=== PATIENT | male | born 1945 | race Caucasian/White ===

== ENCOUNTER 2018-12-19 20:53 | Inpatient (IN) | payer MEDICARE, OTHER ==
[~2018-12-19] VITALS: Ht 188 cm; Wt 135.0 kg
--- NOTE | 2018-12-19 21:00 | NUR ---
Note undone in EDM - 12/19/18 at 2211 by ANN MARIE PT BIB [facility] WITH SOB AND ABD DISTENTION. PT REPORTS INCREASING SOB FOR PAST 2 DAYS AND ABD PAINFUL AND TIGHT. PT WITH VSS AND RESP RATE AT 36. Addendum: 12/19/18 at 2210 by ANN MARIE Amendment undone in EDM - 12/19/18 at 2211 by ANN MARIE NOTE AT 1954
[2018-12-19 21:25] LABS: MEAN CORPUSCULAR HEMOGLOBIN 29.6 pg (27.5-34.5); MEAN CORPUSCULAR HGB CONC 32.2 g/dL (33.2-36.2); MEAN PLATELET VOLUME 8.1 fL (7.4-10.4); PLATELET COUNT 313 x10^3/uL (130-400); RED BLOOD COUNT 5.17 x10^6/uL (4.38-5.82); RED CELL DISTRIBUTION WIDTH 15.1 % (9.4-14.8)
[2018-12-19] MEDS ORDERED: AZITHROMYCIN 500 MG in SODIUM CHLORIDE 0.9% 250 ML IV ONE (21:30)
[2018-12-19] MEDS ORDERED: FILTER 0.22 MICRON IV PRN (21:30)
[2018-12-19] MEDS ORDERED: AMIODARONE IN D5W 200 ML IV PRN (21:30)
[2018-12-19] MEDS ORDERED: CEFTRIAXONE PMX 1GM/50ML 50 ML IV ONE (21:30)
[2018-12-19 21:37] LABS: ALANINE AMINOTRANSFERASE 25 U/L (12-78); ALBUMIN 3.2 g/dL (3.4-5.0); ANION GAP 8 mmol/L (5-15); CALCIUM 8.6 mg/dL (8.5-10.1); CHLORIDE 98 mmol/L (98-107); CREATININE 1.05 mg/dL (0.7-1.3)
[2018-12-19 21:39] LABS: BASOPHILS # (AUTO) 0.07 x10^3/uL (0-0.1); BASOPHILS % (AUTO) 0 % (0-1); EOSINOPHILS # (AUTO) 0.14 x10^3/uL (0-0.4); EOSINOPHILS % (AUTO) 1 % (1-7); LYMPHOCYTES # (AUTO) 0.66 x10^3/uL (1-3.4); LYMPHOCYTES % (AUTO) 3 % (22-44); MD SCAN; MONOCYTES # (AUTO) 2.23 x10^3/uL (0.2-0.8); MONOCYTES % (AUTO) 9 % (2-9); NEUTROPHILS # (AUTO) 20.78 x10^3/uL (1.8-6.8); NEUTROPHILS % (AUTO) 87 % (42-75)
[2018-12-19 21:41] LABS: ALKALINE PHOSPHATASE 137 U/L (45-117); BILIRUBIN,TOTAL 0.4 mg/dL (0.2-1.0); TOTAL PROTEIN 7.4 g/dL (6.4-8.2); TROPONIN I 0.017 ng/mL (0.000-0.045)
--- NOTE | 2018-12-19 22:10 | NUR ---
Francis ruffin in EDM - 12/19/18 at 2213 by ANN MARIE BC X 2 TO LAB AND PT REPORTING SOB AND ABD PAIN REMAINS.
--- NOTE | 2018-12-19 22:13 | NUR ---
PT BIB [facility] WITH SOB AND HI HR AT 180-220. PT WITH 2 IV LINES STRATED AND PT WAS PREPED FOR RSI. PT INTUBATED WITH 8.0 ET TUBE. PT TOLERATED PROCEDURE WELL. PT WAS A VA DIVERT.
--- NOTE | 2018-12-19 22:26 | NUR ---
FAMILY AT BEDSIDE AND AWAITING CT SCAN AND CCU ADMIT.
[2018-12-19] MEDS ORDERED: CEFTRIAXONE PMX 1GM/50ML 50 ML ONE (22:32)
[2018-12-19] MEDS ORDERED: OMNIPAQUE 350 MG/ML, 100ML BOTTLE ONE (23:23)
--- NOTE | 2018-12-19 23:25 | NUR ---
PT BACK FROM CT SCAN AND VSS WITH FAMILY AT BEDSIDE.
[2018-12-19] MEDS ORDERED: PROPOFOL 100 ML IV ONE (23:51)
--- NOTE | 2018-12-20 00:38 | NUR ---
REPORT CALLED TO FLOOR PT READY TO GO.
[2018-12-20] MEDS ORDERED: SODIUM CHLORIDE 0.9% 1,000 ML IV SCH (01:00)
[2018-12-20] MEDS ORDERED: PHARMACY MAY ADJ FOR RENAL FX MC SCH (01:00)
[2018-12-20] MEDS ORDERED: CEFTRIAXONE PMX 1GM/50ML 50 ML IV SCH ×2 (01:00)
[2018-12-20] MEDS ORDERED: LIDOCAINE-MPF 1%, 2ML ENDO PRN (01:00)
[2018-12-20] MEDS ORDERED: ACETAMINOPHEN 650 MG/20.3 ML UDC NG PRN (01:00)
[2018-12-20] MEDS: PLEASE ENTER ALLERGIES MC SCH (01:47)
[2018-12-20 01:48] LABS: HEMOGLOBIN A1C 7.7 % (4.2-6.3)
[2018-12-20] MEDS: PROPOFOL 100 ML IV PRN ×6 (01:58→17:29)
[2018-12-20] MEDS ORDERED: SODIUM CHLORIDE 0.9% 1,000ML IVBOLUS ONE (02:00)
[2018-12-20] MEDS ORDERED: ALBUTEROL/IPRATROPIUM 2.5MG/0.5MG, 3 ML ONE (03:01)
[2018-12-20] MEDS: DOXYCYCLINE 100 MG in DEXTROSE 5% 250 ML IV SCH ×2 (03:14→14:19)
[2018-12-20] MEDS ORDERED: FILTER 0.22 MICRON IV PRN (03:30)
[2018-12-20] MEDS: FAMOTIDINE 20 MG/2 ML IV SCH ×2 (03:31→20:10)
[2018-12-20] MEDS: HEPARIN 5,000 UNITS/ML, 1ML SQ SCH ×3 (03:32→20:10)
[2018-12-20] MEDS: AMIODARONE 900 MG in DEXTROSE 5% 482 ML IV PRN (03:37)
[2018-12-20 03:41] VITALS: BP 104/64
[2018-12-20 05:31] LABS: MEAN CORPUSCULAR HEMOGLOBIN 29.9 pg (27.5-34.5); MEAN CORPUSCULAR HGB CONC 32.6 g/dL (33.2-36.2); MEAN CORPUSCULAR VOLUME 91.9 fL (81-97); PLATELET COUNT 260 x10^3/uL (130-400); RED BLOOD COUNT 4.53 x10^6/uL (4.38-5.82); RED CELL DISTRIBUTION WIDTH 15.2 % (9.4-14.8)
[2018-12-20 05:42] LABS: CHLORIDE 102 mmol/L (98-107)
[2018-12-20 05:43] LABS: ANION GAP 7 mmol/L (5-15); CALCIUM 7.7 mg/dL (8.5-10.1)
[2018-12-20 05:52] LABS: CREATININE 1.12 mg/dL (0.7-1.3); T4 (THYROXINE) 8.6 mcg/dL (4.5-12.1)
[2018-12-20 05:58] LABS: MD YES
[2018-12-20 06:05] LABS: LYMPH#(MANUAL) 1.06 x10^3/uL (1-3.4); LYMPHS% (MANUAL) 4 % (22-44); MONOS#(MANUAL) 2.13 x10^3/uL (0.3-2.7); MONOS% (MANUAL) 8 % (2-9); SEG#(MANUAL) 23.41 x10^3/uL (1.8-6.8); SEGS% (MANUAL) 88 % (42-75)
[2018-12-20 06:08] LABS: <PLATELET ESTIMATE> ADEQUATE; ANISOCYTOSIS 1+
[2018-12-20 06:12] LABS: LARGE PLATELETS 1+
[2018-12-20] MEDS: ALBUTEROL/IPRATROPIUM 2.5MG/0.5MG, 3 ML NPPB SCH ×4 (06:26→22:57)
[2018-12-20] MEDS: SODIUM CHLORIDE 0.9% 1,000 ML IV SCH ×2 (07:46→17:24)
[2018-12-20] MEDS: INSULIN LISPRO 100 UNITS/ML, PEN SQ-INSULIN SCH ×3 (07:51→17:21)
[2018-12-20] MEDS ORDERED: PROPOFOL 10 MG/ML, 100ML IV ONE (10:02)
[2018-12-20] MEDS ORDERED: MIDAZOLAM 1 MG/ML, 5ML ONE (10:02)
[2018-12-20] MEDS ORDERED: ROCURONIUM 10MG/ML,5ML ONE (10:02)
[2018-12-20] MEDS ORDERED: ETOMIDATE 20 MG/10 ML ONE (10:02)
[2018-12-20] MEDS ORDERED: SUCCINYLCHOLINE 20 MG/ML, 10ML ONE (10:02)
[2018-12-20] MEDS ORDERED: PROPOFOL 10 MG/ML, 20ML ONE (10:02)
--- NOTE | 2018-12-20 10:25 | NUR ---
TF GOAL: w/ propofol: VITAL HIGH PROTEIN @ 65ml/hr off propofol: 75ml/hr
[2018-12-20] MEDS: FENTANYL PF 100 MCG/2ML IVPush PRN (22:03)
[2018-12-21] MEDS: INSULIN LISPRO 100 UNITS/ML, PEN SQ-INSULIN SCH ×4 (00:12→15:37)
[2018-12-21] MEDS: CEFTRIAXONE PMX 2GM/50ML 50 ML IV SCH (00:12)
[2018-12-21] MEDS: PROPOFOL 100 ML IV PRN ×8 (00:22→23:50)
[2018-12-21] MEDS: FENTANYL PF 100 MCG/2ML IVPush PRN ×2 (00:34→20:08)
[2018-12-21] MEDS: DOXYCYCLINE 100 MG in DEXTROSE 5% 250 ML IV SCH (02:35)
[2018-12-21] MEDS: HEPARIN 5,000 UNITS/ML, 1ML SQ SCH ×3 (03:24→20:08)
[2018-12-21 04:53] LABS: BASOPHILS # (AUTO) 0.03 x10^3/uL (0-0.1); BASOPHILS % (AUTO) 0 % (0-1); EOSINOPHILS # (AUTO) 0.04 x10^3/uL (0-0.4); EOSINOPHILS % (AUTO) 0 % (1-7); LYMPHOCYTES # (AUTO) 1.06 x10^3/uL (1-3.4); LYMPHOCYTES % (AUTO) 7 % (22-44); MD NO; MEAN CORPUSCULAR HEMOGLOBIN 29.9 pg (27.5-34.5); MEAN CORPUSCULAR HGB CONC 32.4 g/dL (33.2-36.2); MEAN CORPUSCULAR VOLUME 92.3 fL (81-97); MEAN PLATELET VOLUME 8.3 fL (7.4-10.4); MONOCYTES # (AUTO) 1.35 x10^3/uL (0.2-0.8); MONOCYTES % (AUTO) 8 % (2-9); NEUTROPHILS # (AUTO) 13.78 x10^3/uL (1.8-6.8); NEUTROPHILS % (AUTO) 85 % (42-75); PLATELET COUNT 232 x10^3/uL (130-400); RED BLOOD COUNT 4.31 x10^6/uL (4.38-5.82)
[2018-12-21 04:54] LABS: ANION GAP 7 mmol/L (5-15); CALCIUM 7.7 mg/dL (8.5-10.1); CHLORIDE 102 mmol/L (98-107)
[2018-12-21] MEDS: ALBUTEROL/IPRATROPIUM 2.5MG/0.5MG, 3 ML NPPB SCH ×5 (07:00→22:01)
[2018-12-21] MEDS: AMIODARONE 900 MG in DEXTROSE 5% 482 ML IV PRN (08:18)
[2018-12-21] MEDS: FAMOTIDINE 20 MG/2 ML IV SCH ×2 (08:57→20:12)
[2018-12-21] MEDS: FUROSEMIDE 20 MG/2 ML IV SCH ×2 (11:53→17:30)
[2018-12-21] MEDS: POTASSIUM CHLORIDE 10% 20 MEQ/15 ML UDC PO SCH ×2 (11:54→20:12)
[2018-12-21] MEDS: AMIODARONE 200 MG TABLET PO SCH (20:12)
[2018-12-21] MEDS: DOXYCYCLINE 50 MG/5 ML ORAL SUSP PO SCH (20:13)
[2018-12-22] MEDS: INSULIN LISPRO 100 UNITS/ML, PEN SQ-INSULIN SCH ×5 (00:28→21:08)
[2018-12-22] MEDS: CEFTRIAXONE PMX 2GM/50ML 50 ML IV SCH (00:30)
[2018-12-22] MEDS: FENTANYL PF 100 MCG/2ML IVPush PRN (00:35)
[2018-12-22] MEDS: ALBUTEROL/IPRATROPIUM 2.5MG/0.5MG, 3 ML NPPB SCH ×6 (02:09→22:39)
[2018-12-22] MEDS: PROPOFOL 100 ML IV PRN ×4 (02:24→21:17)
[2018-12-22] MEDS: HEPARIN 5,000 UNITS/ML, 1ML SQ SCH ×3 (03:56→19:31)
[2018-12-22 04:40] LABS: BASOPHILS # (AUTO) 0.01 x10^3/uL (0-0.1); BASOPHILS % (AUTO) 0 % (0-1); EOSINOPHILS # (AUTO) 0.13 x10^3/uL (0-0.4); EOSINOPHILS % (AUTO) 1 % (1-7); LYMPHOCYTES % (AUTO) 5 % (22-44); MD NO; MEAN CORPUSCULAR HEMOGLOBIN 30.2 pg (27.5-34.5); MEAN CORPUSCULAR HGB CONC 32.9 g/dL (33.2-36.2); MEAN CORPUSCULAR VOLUME 91.9 fL (81-97); MEAN PLATELET VOLUME 8.1 fL (7.4-10.4); MONOCYTES # (AUTO) 1.26 x10^3/uL (0.2-0.8); MONOCYTES % (AUTO) 9 % (2-9); NEUTROPHILS # (AUTO) 11.56 x10^3/uL (1.8-6.8); NEUTROPHILS % (AUTO) 85 % (42-75); PLATELET COUNT 238 x10^3/uL (130-400); RED BLOOD COUNT 4.26 x10^6/uL (4.38-5.82); RED CELL DISTRIBUTION WIDTH 15.3 % (9.4-14.8)
[2018-12-22 04:51] LABS: ANION GAP 4 mmol/L (5-15); CALCIUM 8.3 mg/dL (8.5-10.1); CHLORIDE 103 mmol/L (98-107); CREATININE 0.85 mg/dL (0.7-1.3)
[2018-12-22] MEDS: FAMOTIDINE 20 MG/2 ML IV SCH ×2 (08:11→21:06)
[2018-12-22] MEDS: FUROSEMIDE 20 MG/2 ML IV SCH ×2 (08:11→17:11)
[2018-12-22] MEDS: DOXYCYCLINE 50 MG/5 ML ORAL SUSP PO SCH (08:11)
[2018-12-22] MEDS: POTASSIUM CHLORIDE 10% 20 MEQ/15 ML UDC PO SCH ×2 (08:11→21:06)
[2018-12-22] MEDS: AMIODARONE 200 MG TABLET PO SCH ×2 (08:13→21:07)
[2018-12-23] MEDS: CEFTRIAXONE PMX 2GM/50ML 50 ML IV SCH ×2 (00:44→23:33)
[2018-12-23] MEDS: PROPOFOL 100 ML IV PRN ×2 (01:42→04:39)
[2018-12-23] MEDS: ALBUTEROL/IPRATROPIUM 2.5MG/0.5MG, 3 ML NPPB SCH ×6 (03:00→22:38)
[2018-12-23] MEDS: HEPARIN 5,000 UNITS/ML, 1ML SQ SCH ×3 (04:11→19:56)
[2018-12-23 04:37] LABS: MEAN CORPUSCULAR HEMOGLOBIN 29.6 pg (27.5-34.5); MEAN CORPUSCULAR HGB CONC 32.5 g/dL (33.2-36.2); MEAN PLATELET VOLUME 8.1 fL (7.4-10.4); PLATELET COUNT 227 x10^3/uL (130-400); RED BLOOD COUNT 4.39 x10^6/uL (4.38-5.82); RED CELL DISTRIBUTION WIDTH 15.4 % (9.4-14.8)
[2018-12-23 04:47] LABS: ANION GAP 7 mmol/L (5-15); CALCIUM 8.4 mg/dL (8.5-10.1); CHLORIDE 103 mmol/L (98-107); CREATININE 0.81 mg/dL (0.7-1.3); TRIGLYCERIDES 169 mg/dL (50-200)
[2018-12-23 04:55] LABS: BASOPHILS # (AUTO) 0.06 x10^3/uL (0-0.1); BASOPHILS % (AUTO) 0 % (0-1); EOSINOPHILS # (AUTO) 0.04 x10^3/uL (0-0.4); EOSINOPHILS % (AUTO) 0 % (1-7); LYMPHOCYTES % (AUTO) 4 % (22-44); MD SCAN; MONOCYTES # (AUTO) 1.72 x10^3/uL (0.2-0.8); MONOCYTES % (AUTO) 11 % (2-9); NEUTROPHILS # (AUTO) 13.95 x10^3/uL (1.8-6.8); NEUTROPHILS % (AUTO) 85 % (42-75)
[2018-12-23] MEDS: INSULIN LISPRO 100 UNITS/ML, PEN SQ-INSULIN SCH ×5 (06:10→23:31)
[2018-12-23] MEDS: FUROSEMIDE 20 MG/2 ML IV SCH ×2 (07:37→17:00)
[2018-12-23] MEDS: POTASSIUM CHLORIDE 10% 20 MEQ/15 ML UDC PO SCH ×2 (09:23→20:36)
[2018-12-23] MEDS: metFORMIN 500 MG TABLET PO SCH ×2 (09:23→17:00)
[2018-12-23] MEDS: GABAPENTIN 400 MG CAPSULE PO SCH ×3 (09:23→20:36)
[2018-12-23] MEDS: FAMOTIDINE 20 MG/2 ML IV SCH ×2 (09:24→20:35)
[2018-12-23] MEDS: AMIODARONE 200 MG TABLET PO SCH ×2 (09:24→20:36)
[2018-12-23] MEDS: BRIMONIDINE TARTRATE OPHTH 0.15%, 5ML EACHEYE SCH ×2 (13:16→20:35)
[2018-12-23] MEDS: DORZOLAMIDE OPHTH 2%, 10ML EACHEYE SCH ×3 (13:17→20:35)
[2018-12-23] MEDS: DEXMEDETOMIDINE 1,000 MCG in SODIUM CHLORIDE 0.9% 240 ML IV PRN (14:58)
[2018-12-23] MEDS: FENTANYL PF 100 MCG/2ML IVPush PRN (19:46)
[2018-12-23] MEDS ORDERED: POLYETHYLENE GLYCOL 17 GM PACKET PO PRN (20:30)
[2018-12-23] MEDS ORDERED: BISACODYL 10 MG SUPP PR PRN (20:30)
[2018-12-23] MEDS ORDERED: MAGNESIUM CITRATE 300ML ORAL SOL PO PRN (20:30)
[2018-12-23] MEDS: RISPERIDONE 0.5 MG TABLET PO SCH (20:36)
[2018-12-23] MEDS: TERAZOSIN 2MG CAPSULE PO SCH (20:36)
[2018-12-23] MEDS: ATORVASTATIN 40 MG TABLET PO SCH (20:36)
[2018-12-24] MEDS: DEXMEDETOMIDINE 1,000 MCG in SODIUM CHLORIDE 0.9% 240 ML IV PRN ×2 (02:02→15:58)
[2018-12-24] MEDS: ALBUTEROL/IPRATROPIUM 2.5MG/0.5MG, 3 ML NPPB SCH ×6 (02:07→22:57)
[2018-12-24] MEDS: HEPARIN 5,000 UNITS/ML, 1ML SQ SCH ×3 (03:56→20:30)
[2018-12-24 04:25] LABS: MEAN CORPUSCULAR HEMOGLOBIN 29.8 pg (27.5-34.5); MEAN CORPUSCULAR HGB CONC 32.6 g/dL (33.2-36.2); MEAN CORPUSCULAR VOLUME 91.3 fL (81-97); MEAN PLATELET VOLUME 7.9 fL (7.4-10.4); PLATELET COUNT 255 x10^3/uL (130-400); RED BLOOD COUNT 4.25 x10^6/uL (4.38-5.82); RED CELL DISTRIBUTION WIDTH 15.7 % (9.4-14.8)
[2018-12-24 04:34] LABS: ANION GAP 5 mmol/L (5-15); CALCIUM 8.8 mg/dL (8.5-10.1); CHLORIDE 105 mmol/L (98-107); CREATININE 0.85 mg/dL (0.7-1.3)
[2018-12-24] MEDS: INSULIN LISPRO 100 UNITS/ML, PEN SQ-INSULIN SCH ×4 (04:38→20:36)
[2018-12-24 04:42] LABS: BASOPHILS % (AUTO) 0 % (0-1); EOSINOPHILS # (AUTO) 0.01 x10^3/uL (0-0.4); EOSINOPHILS % (AUTO) 0 % (1-7); LYMPHOCYTES # (AUTO) 0.43 x10^3/uL (1-3.4); LYMPHOCYTES % (AUTO) 3 % (22-44); MD SCAN; MONOCYTES # (AUTO) 1.23 x10^3/uL (0.2-0.8); MONOCYTES % (AUTO) 7 % (2-9); NEUTROPHILS # (AUTO) 15.29 x10^3/uL (1.8-6.8); NEUTROPHILS % (AUTO) 90 % (42-75)
[2018-12-24] MEDS: metFORMIN 500 MG TABLET PO SCH ×2 (08:36→15:51)
[2018-12-24] MEDS: BRIMONIDINE TARTRATE OPHTH 0.15%, 5ML EACHEYE SCH ×2 (08:36→20:37)
[2018-12-24] MEDS: POTASSIUM CHLORIDE 10% 20 MEQ/15 ML UDC PO SCH ×2 (08:36→20:29)
[2018-12-24] MEDS: AMIODARONE 200 MG TABLET PO SCH ×2 (08:36→20:29)
[2018-12-24] MEDS: FAMOTIDINE 20 MG/2 ML IV SCH ×2 (08:36→20:30)
[2018-12-24] MEDS: GABAPENTIN 400 MG CAPSULE PO SCH ×3 (08:36→20:29)
[2018-12-24] MEDS: FUROSEMIDE 20 MG/2 ML IV SCH ×2 (08:36→15:52)
[2018-12-24] MEDS: DORZOLAMIDE OPHTH 2%, 10ML EACHEYE SCH ×3 (08:57→20:37)
[2018-12-24] MEDS ORDERED: INSULIN GLARGINE 100 UNITS/ML, PEN SQ-INSULIN SCH (09:00)
[2018-12-24] MEDS: TERAZOSIN 2MG CAPSULE PO SCH (20:29)
[2018-12-24] MEDS: ATORVASTATIN 40 MG TABLET PO SCH (20:29)
[2018-12-24] MEDS: RISPERIDONE 0.5 MG TABLET PO SCH (20:30)
[2018-12-24] MEDS: INSULIN GLARGINE 100 UNITS/ML, PEN SQ-INSULIN SCH (20:37)
[2018-12-25] MEDS: CEFTRIAXONE PMX 2GM/50ML 50 ML IV SCH (00:05)
[2018-12-25] MEDS: FENTANYL PF 100 MCG/2ML IVPush PRN (01:54)
[2018-12-25] MEDS: ALBUTEROL/IPRATROPIUM 2.5MG/0.5MG, 3 ML NPPB SCH ×6 (03:00→22:35)
[2018-12-25] MEDS: DEXMEDETOMIDINE 1,000 MCG in SODIUM CHLORIDE 0.9% 240 ML IV PRN (03:09)
[2018-12-25 04:25] LABS: MEAN CORPUSCULAR HGB CONC 31.9 g/dL (33.2-36.2); MEAN CORPUSCULAR VOLUME 94.1 fL (81-97); MEAN PLATELET VOLUME 8.3 fL (7.4-10.4); PLATELET COUNT 248 x10^3/uL (130-400); RED BLOOD COUNT 4.32 x10^6/uL (4.38-5.82); RED CELL DISTRIBUTION WIDTH 15.7 % (9.4-14.8)
[2018-12-25 04:33] LABS: ANION GAP 5 mmol/L (5-15); CHLORIDE 106 mmol/L (98-107); CREATININE 0.87 mg/dL (0.7-1.3)
[2018-12-25] MEDS: INSULIN LISPRO 100 UNITS/ML, PEN SQ-INSULIN SCH ×4 (05:00→20:23)
[2018-12-25] MEDS: HEPARIN 5,000 UNITS/ML, 1ML SQ SCH ×3 (05:03→20:19)
[2018-12-25 05:24] LABS: BASOPHILS # (AUTO) 0.04 x10^3/uL (0-0.1); BASOPHILS % (AUTO) 0 % (0-1); EOSINOPHILS # (AUTO) 0.02 x10^3/uL (0-0.4); EOSINOPHILS % (AUTO) 0 % (1-7); LYMPHOCYTES # (AUTO) 0.58 x10^3/uL (1-3.4); LYMPHOCYTES % (AUTO) 4 % (22-44); MD SCAN; MONOCYTES # (AUTO) 1.39 x10^3/uL (0.2-0.8); MONOCYTES % (AUTO) 9 % (2-9); NEUTROPHILS # (AUTO) 13.96 x10^3/uL (1.8-6.8); NEUTROPHILS % (AUTO) 87 % (42-75)
[2018-12-25] MEDS: FUROSEMIDE 20 MG/2 ML IV SCH ×2 (06:36→15:38)
[2018-12-25] MEDS: GABAPENTIN 400 MG CAPSULE PO SCH ×3 (08:34→20:21)
[2018-12-25] MEDS: FAMOTIDINE 20 MG/2 ML IV SCH ×2 (08:34→20:20)
[2018-12-25] MEDS: POTASSIUM CHLORIDE 10% 20 MEQ/15 ML UDC PO SCH ×2 (08:34→20:20)
[2018-12-25] MEDS: DORZOLAMIDE OPHTH 2%, 10ML EACHEYE SCH ×3 (08:34→20:20)
[2018-12-25] MEDS: BRIMONIDINE TARTRATE OPHTH 0.15%, 5ML EACHEYE SCH ×2 (08:34→20:20)
[2018-12-25] MEDS: AMIODARONE 200 MG TABLET PO SCH ×2 (08:35→20:22)
[2018-12-25] MEDS: INSULIN GLARGINE 100 UNITS/ML, PEN SQ-INSULIN SCH ×2 (08:38→20:22)
--- NOTE | 2018-12-25 15:34 | NUR ---
PUREE/ NTL up for meals no straws Addendum: 12/25/18 at 1535 by USHA VILLATORO Amended: Links added.
[2018-12-25] MEDS: ATORVASTATIN 40 MG TABLET PO SCH (20:21)
[2018-12-25] MEDS: RISPERIDONE 0.5 MG TABLET PO SCH (20:21)
[2018-12-25] MEDS: TERAZOSIN 2MG CAPSULE PO SCH (20:21)
[2018-12-26] MEDS: CEFTRIAXONE PMX 2GM/50ML 50 ML IV SCH (01:42)
[2018-12-26] MEDS: ALBUTEROL/IPRATROPIUM 2.5MG/0.5MG, 3 ML NPPB SCH ×5 (03:00→19:59)
[2018-12-26] MEDS: INSULIN LISPRO 100 UNITS/ML, PEN SQ-INSULIN SCH ×4 (04:35→21:44)
[2018-12-26 04:36] LABS: BASOPHILS # (AUTO) 0.03 x10^3/uL (0-0.1); BASOPHILS % (AUTO) 0 % (0-1); EOSINOPHILS # (AUTO) 0.14 x10^3/uL (0-0.4); EOSINOPHILS % (AUTO) 1 % (1-7); LYMPHOCYTES # (AUTO) 0.69 x10^3/uL (1-3.4); LYMPHOCYTES % (AUTO) 6 % (22-44); MD NO; MEAN CORPUSCULAR HGB CONC 31.9 g/dL (33.2-36.2); MEAN CORPUSCULAR VOLUME 94.1 fL (81-97); MEAN PLATELET VOLUME 8.1 fL (7.4-10.4); MONOCYTES # (AUTO) 1.14 x10^3/uL (0.2-0.8); MONOCYTES % (AUTO) 9 % (2-9); NEUTROPHILS # (AUTO) 10.27 x10^3/uL (1.8-6.8); NEUTROPHILS % (AUTO) 84 % (42-75); PLATELET COUNT 255 x10^3/uL (130-400); RED BLOOD COUNT 4.28 x10^6/uL (4.38-5.82)
[2018-12-26] MEDS: HEPARIN 5,000 UNITS/ML, 1ML SQ SCH ×3 (04:36→20:11)
[2018-12-26 04:46] LABS: ANION GAP 6 mmol/L (5-15); CALCIUM 9.3 mg/dL (8.5-10.1); CHLORIDE 107 mmol/L (98-107); CREATININE 0.75 mg/dL (0.7-1.3); TRIGLYCERIDES 159 mg/dL (50-200)
[2018-12-26] MEDS: BRIMONIDINE TARTRATE OPHTH 0.15%, 5ML EACHEYE SCH ×2 (09:00→20:11)
[2018-12-26] MEDS: FUROSEMIDE 20 MG/2 ML IV SCH ×2 (09:28→19:30)
[2018-12-26] MEDS: FAMOTIDINE 20 MG/2 ML IV SCH (09:29)
[2018-12-26] MEDS: DORZOLAMIDE OPHTH 2%, 10ML EACHEYE SCH ×3 (09:29→20:11)
[2018-12-26] MEDS: AMIODARONE 200 MG TABLET PO SCH ×2 (09:30→20:12)
[2018-12-26] MEDS: GABAPENTIN 400 MG CAPSULE PO SCH ×3 (09:30→20:12)
[2018-12-26] MEDS: POTASSIUM CHLORIDE 10% 20 MEQ/15 ML UDC PO SCH ×2 (09:30→20:13)
[2018-12-26] MEDS: INSULIN GLARGINE 100 UNITS/ML, PEN SQ-INSULIN SCH ×2 (09:33→21:44)
[2018-12-26] MEDS ORDERED: POTASSIUM CHLORIDE 20 MEQ PACKET ONE (19:49)
[2018-12-26] MEDS ORDERED: FAMOTIDINE 20 MG TABLET ONE (19:57)
[2018-12-26] MEDS: BUDESONIDE 0.5 MG/2 ML INHA INH SCH (19:59)
[2018-12-26] MEDS: RISPERIDONE 0.5 MG TABLET PO SCH (20:12)
[2018-12-26] MEDS: FAMOTIDINE 20 MG TABLET PO SCH (20:12)
[2018-12-26] MEDS: ATORVASTATIN 40 MG TABLET PO SCH (20:12)
[2018-12-26] MEDS: TERAZOSIN 2MG CAPSULE PO SCH (20:12)
[2018-12-26 20:43] VITALS: BP 127/82
[2018-12-27] MEDS: CEFTRIAXONE PMX 2GM/50ML 50 ML IV SCH (00:22)
[2018-12-27 01:09] VITALS: BP 125/76
[2018-12-27] MEDS: INSULIN LISPRO 100 UNITS/ML, PEN SQ-INSULIN SCH ×4 (03:21→20:19)
[2018-12-27] MEDS: HEPARIN 5,000 UNITS/ML, 1ML SQ SCH ×3 (03:24→20:07)
[2018-12-27 05:20] LABS: BASOPHILS # (AUTO) 0.03 x10^3/uL (0-0.1); BASOPHILS % (AUTO) 0 % (0-1); EOSINOPHILS # (AUTO) 0.31 x10^3/uL (0-0.4); EOSINOPHILS % (AUTO) 3 % (1-7); LYMPHOCYTES # (AUTO) 0.73 x10^3/uL (1-3.4); LYMPHOCYTES % (AUTO) 6 % (22-44); MD NO; MEAN CORPUSCULAR HEMOGLOBIN 30.1 pg (27.5-34.5); MEAN CORPUSCULAR VOLUME 93.8 fL (81-97); MEAN PLATELET VOLUME 8.4 fL (7.4-10.4); MONOCYTES % (AUTO) 9 % (2-9); NEUTROPHILS # (AUTO) 9.65 x10^3/uL (1.8-6.8); NEUTROPHILS % (AUTO) 82 % (42-75); PLATELET COUNT 301 x10^3/uL (130-400); RED BLOOD COUNT 4.51 x10^6/uL (4.38-5.82); RED CELL DISTRIBUTION WIDTH 15.5 % (9.4-14.8)
[2018-12-27 05:24] LABS: ALANINE AMINOTRANSFERASE 80 U/L (12-78); ALBUMIN 2.6 g/dL (3.4-5.0); ANION GAP 6 mmol/L (5-15); CALCIUM 9.3 mg/dL (8.5-10.1); CHLORIDE 106 mmol/L (98-107); CREATININE 0.82 mg/dL (0.7-1.3)
[2018-12-27 05:27] LABS: ALKALINE PHOSPHATASE 108 U/L (45-117); BILIRUBIN,TOTAL 0.4 mg/dL (0.2-1.0); TOTAL PROTEIN 6.8 g/dL (6.4-8.2)
[2018-12-27] MEDS: ALBUTEROL/IPRATROPIUM 2.5MG/0.5MG, 3 ML NPPB SCH ×4 (07:40→20:45)
[2018-12-27] MEDS: BUDESONIDE 0.5 MG/2 ML INHA INH SCH ×2 (07:40→20:49)
[2018-12-27 07:41] VITALS: BP 125/77
[2018-12-27] MEDS ORDERED: POTASSIUM CHLORIDE 20 MEQ TAB.ER.PRT ONE (08:42)
[2018-12-27] MEDS: GABAPENTIN 400 MG CAPSULE PO SCH ×3 (08:49→20:06)
[2018-12-27] MEDS: AMIODARONE 200 MG TABLET PO SCH ×2 (08:49→20:06)
[2018-12-27] MEDS: DORZOLAMIDE OPHTH 2%, 10ML EACHEYE SCH ×3 (08:50→21:34)
[2018-12-27] MEDS: FUROSEMIDE 20 MG/2 ML IV SCH ×2 (08:50→17:38)
[2018-12-27] MEDS: FAMOTIDINE 20 MG TABLET PO SCH (08:50)
[2018-12-27] MEDS: POTASSIUM CHLORIDE 10% 20 MEQ/15 ML UDC PO SCH ×2 (08:50→20:19)
[2018-12-27] MEDS: BRIMONIDINE TARTRATE OPHTH 0.15%, 5ML EACHEYE SCH ×2 (08:51→21:34)
[2018-12-27] MEDS: INSULIN GLARGINE 100 UNITS/ML, PEN SQ-INSULIN SCH ×2 (08:57→21:35)
--- NOTE | 2018-12-27 09:54 | NUR ---
CONCRETE FORM SETTER REC: GROUND/ THINS * UPRIGHT AT 90 FOR ALL PO INTAKE * SMALL BITES/SINGLE SIPS * NO STRAWS * 1:1 ASSIST/SUPERVISION BY NURSING * MEDS WHOLE WITH LIQUID WASH Swallow sign posted in patient room. Addendum: 12/27/18 at 0955 by Kelli VILLATORO Amended: Links added.
[2018-12-27] MEDS: TERAZOSIN 2MG CAPSULE PO SCH (20:06)
[2018-12-27] MEDS: ATORVASTATIN 40 MG TABLET PO SCH (20:06)
[2018-12-27] MEDS: RISPERIDONE 0.5 MG TABLET PO SCH (20:07)
[2018-12-27] MEDS ORDERED: HALOPERIDOL 5 MG/ML IM ONE (20:30)
[2018-12-27 21:00] VITALS: BP 142/84
[2018-12-28] MEDS: CEFTRIAXONE PMX 2GM/50ML 50 ML IV SCH (00:39)
[2018-12-28 01:27] VITALS: BP 122/72
[2018-12-28] MEDS: INSULIN LISPRO 100 UNITS/ML, PEN SQ-INSULIN SCH ×4 (04:44→20:32)
[2018-12-28 04:55] LABS: BASOPHILS # (AUTO) 0.03 x10^3/uL (0-0.1); BASOPHILS % (AUTO) 0 % (0-1); EOSINOPHILS # (AUTO) 0.25 x10^3/uL (0-0.4); EOSINOPHILS % (AUTO) 2 % (1-7); LYMPHOCYTES # (AUTO) 0.74 x10^3/uL (1-3.4); LYMPHOCYTES % (AUTO) 7 % (22-44); MD NO; MEAN CORPUSCULAR HGB CONC 31.9 g/dL (33.2-36.2); MEAN PLATELET VOLUME 8.4 fL (7.4-10.4); MONOCYTES # (AUTO) 0.83 x10^3/uL (0.2-0.8); MONOCYTES % (AUTO) 8 % (2-9); NEUTROPHILS # (AUTO) 9.28 x10^3/uL (1.8-6.8); NEUTROPHILS % (AUTO) 83 % (42-75); PLATELET COUNT 308 x10^3/uL (130-400); RED BLOOD COUNT 4.58 x10^6/uL (4.38-5.82); RED CELL DISTRIBUTION WIDTH 15.6 % (9.4-14.8)
[2018-12-28 05:03] LABS: CHLORIDE 103 mmol/L (98-107)
[2018-12-28] MEDS: HEPARIN 5,000 UNITS/ML, 1ML SQ SCH ×3 (05:12→20:29)
[2018-12-28 05:13] LABS: ALANINE AMINOTRANSFERASE 68 U/L (12-78); ALBUMIN 2.7 g/dL (3.4-5.0); ALKALINE PHOSPHATASE 117 U/L (45-117); ANION GAP 6 mmol/L (5-15); BILIRUBIN,TOTAL 0.9 mg/dL (0.2-1.0); CALCIUM 9.1 mg/dL (8.5-10.1); CREATININE 0.82 mg/dL (0.7-1.3); TOTAL PROTEIN 6.9 g/dL (6.4-8.2)
[2018-12-28] MEDS: ALBUTEROL/IPRATROPIUM 2.5MG/0.5MG, 3 ML NPPB SCH ×4 (07:05→19:54)
[2018-12-28 08:05] VITALS: BP 102/60
[2018-12-28] MEDS: DORZOLAMIDE OPHTH 2%, 10ML EACHEYE SCH ×3 (08:15→20:30)
[2018-12-28] MEDS: BRIMONIDINE TARTRATE OPHTH 0.15%, 5ML EACHEYE SCH ×2 (08:15→20:31)
[2018-12-28] MEDS: FUROSEMIDE 20 MG/2 ML IV SCH ×2 (08:15→15:44)
[2018-12-28] MEDS: POTASSIUM CHLORIDE 10% 20 MEQ/15 ML UDC PO SCH ×2 (08:15→20:29)
[2018-12-28] MEDS: GABAPENTIN 400 MG CAPSULE PO SCH ×3 (08:16→20:30)
[2018-12-28] MEDS: AMIODARONE 200 MG TABLET PO SCH ×2 (08:16→20:29)
[2018-12-28] MEDS: INSULIN GLARGINE 100 UNITS/ML, PEN SQ-INSULIN SCH ×2 (08:16→20:32)
[2018-12-28] MEDS: BUDESONIDE 0.5 MG/2 ML INHA INH SCH ×2 (11:40→19:54)
[2018-12-28 13:50] VITALS: BP 117/72
[2018-12-28 19:04] VITALS: BP 100/63
[2018-12-28] MEDS: ATORVASTATIN 40 MG TABLET PO SCH (20:29)
[2018-12-28] MEDS: RISPERIDONE 0.5 MG TABLET PO SCH (20:29)
[2018-12-28] MEDS: TERAZOSIN 2MG CAPSULE PO SCH (20:30)
[2018-12-29] MEDS: CEFTRIAXONE PMX 2GM/50ML 50 ML IV SCH (00:19)
[2018-12-29 00:48] VITALS: BP 92/56
[2018-12-29] MEDS: HEPARIN 5,000 UNITS/ML, 1ML SQ SCH ×3 (04:48→20:45)
[2018-12-29 06:45] VITALS: BP 119/69
[2018-12-29] MEDS: ALBUTEROL/IPRATROPIUM 2.5MG/0.5MG, 3 ML NPPB SCH ×4 (07:40→19:23)
[2018-12-29] MEDS: BUDESONIDE 0.5 MG/2 ML INHA INH SCH ×2 (07:40→19:26)
[2018-12-29] MEDS: INSULIN LISPRO 100 UNITS/ML, PEN SQ-INSULIN SCH ×4 (08:20→20:46)
[2018-12-29] MEDS: INSULIN GLARGINE 100 UNITS/ML, PEN SQ-INSULIN SCH ×2 (08:21→20:46)
[2018-12-29] MEDS: BRIMONIDINE TARTRATE OPHTH 0.15%, 5ML EACHEYE SCH ×2 (08:23→20:47)
[2018-12-29] MEDS: GABAPENTIN 400 MG CAPSULE PO SCH ×3 (08:23→20:46)
[2018-12-29] MEDS: AMIODARONE 200 MG TABLET PO SCH ×2 (08:24→20:46)
[2018-12-29] MEDS: DORZOLAMIDE OPHTH 2%, 10ML EACHEYE SCH ×3 (08:26→20:47)
[2018-12-29] MEDS: POTASSIUM CHLORIDE 10% 20 MEQ/15 ML UDC PO SCH ×2 (08:26→20:49)
[2018-12-29] MEDS: FUROSEMIDE 20 MG/2 ML IV SCH ×2 (08:26→16:51)
[2018-12-29 13:28] VITALS: BP 152/76
[2018-12-29 19:16] VITALS: BP 107/52
[2018-12-29] MEDS: ATORVASTATIN 40 MG TABLET PO SCH (20:46)
[2018-12-29] MEDS: TERAZOSIN 2MG CAPSULE PO SCH (20:46)
[2018-12-29] MEDS: RISPERIDONE 0.5 MG TABLET PO SCH (20:46)
[2018-12-29] MEDS: LACTOBACILLUS CHEW TABLET PO SCH (20:49)
[2018-12-30 01:31] VITALS: BP 112/66
[2018-12-30] MEDS: HEPARIN 5,000 UNITS/ML, 1ML SQ SCH ×3 (04:20→21:09)
[2018-12-30 05:19] LABS: BASOPHILS # (AUTO) 0.06 x10^3/uL (0-0.1); BASOPHILS % (AUTO) 1 % (0-1); EOSINOPHILS # (AUTO) 0.31 x10^3/uL (0-0.4); EOSINOPHILS % (AUTO) 3 % (1-7); LYMPHOCYTES # (AUTO) 1.05 x10^3/uL (1-3.4); LYMPHOCYTES % (AUTO) 9 % (22-44); MD NO; MEAN CORPUSCULAR HEMOGLOBIN 29.9 pg (27.5-34.5); MEAN CORPUSCULAR HGB CONC 32.5 g/dL (33.2-36.2); MEAN CORPUSCULAR VOLUME 91.9 fL (81-97); MEAN PLATELET VOLUME 8.1 fL (7.4-10.4); MONOCYTES # (AUTO) 0.99 x10^3/uL (0.2-0.8); MONOCYTES % (AUTO) 8 % (2-9); NEUTROPHILS # (AUTO) 9.68 x10^3/uL (1.8-6.8); NEUTROPHILS % (AUTO) 80 % (42-75); PLATELET COUNT 312 x10^3/uL (130-400); RED BLOOD COUNT 4.72 x10^6/uL (4.38-5.82); RED CELL DISTRIBUTION WIDTH 14.8 % (9.4-14.8)
[2018-12-30 05:26] LABS: ALBUMIN 2.7 g/dL (3.4-5.0); ANION GAP 6 mmol/L (5-15); CALCIUM 8.8 mg/dL (8.5-10.1); CHLORIDE 99 mmol/L (98-107)
[2018-12-30 05:30] LABS: ALANINE AMINOTRANSFERASE 58 U/L (12-78); ALKALINE PHOSPHATASE 109 U/L (45-117); BILIRUBIN,TOTAL 0.6 mg/dL (0.2-1.0); CREATININE 0.84 mg/dL (0.7-1.3); TOTAL PROTEIN 6.6 g/dL (6.4-8.2)
[2018-12-30] MEDS: BUDESONIDE 0.5 MG/2 ML INHA INH SCH ×2 (07:30→19:54)
[2018-12-30] MEDS: ALBUTEROL/IPRATROPIUM 2.5MG/0.5MG, 3 ML NPPB SCH ×4 (07:30→19:53)
[2018-12-30] MEDS: BRIMONIDINE TARTRATE OPHTH 0.15%, 5ML EACHEYE SCH ×2 (09:00→21:10)
[2018-12-30] MEDS: INSULIN LISPRO 100 UNITS/ML, PEN SQ-INSULIN SCH ×4 (09:11→21:07)
[2018-12-30] MEDS: GABAPENTIN 400 MG CAPSULE PO SCH ×3 (09:12→21:08)
[2018-12-30] MEDS: AMIODARONE 200 MG TABLET PO SCH ×2 (09:12→21:08)
[2018-12-30] MEDS: LACTOBACILLUS CHEW TABLET PO SCH ×3 (09:12→21:09)
[2018-12-30] MEDS: POTASSIUM CHLORIDE 10% 20 MEQ/15 ML UDC PO SCH ×2 (09:12→21:07)
[2018-12-30] MEDS: INSULIN GLARGINE 100 UNITS/ML, PEN SQ-INSULIN SCH ×2 (09:12→21:09)
[2018-12-30] MEDS: DORZOLAMIDE OPHTH 2%, 10ML EACHEYE SCH ×3 (09:13→21:10)
[2018-12-30] MEDS: FUROSEMIDE 20 MG/2 ML IV SCH ×2 (09:13→16:26)
[2018-12-30 09:24] VITALS: BP 108/69
--- NOTE | 2018-12-30 09:46 | NUR ---
REC: Chopped diet/thin liquids; orange sheet updated in room Addendum: 12/30/18 at 0946 by Guerline VILLATORO Amended: Links added.
[2018-12-30 15:20] VITALS: BP 100/66
[2018-12-30 20:17] VITALS: BP 127/77
[2018-12-30] MEDS ORDERED: POTASSIUM CHLORIDE 20 MEQ TAB.ER.PRT ONE (20:58)
[2018-12-30] MEDS: ATORVASTATIN 40 MG TABLET PO SCH (21:08)
[2018-12-30] MEDS: TERAZOSIN 2MG CAPSULE PO SCH (21:09)
[2018-12-30] MEDS: RISPERIDONE 0.5 MG TABLET PO SCH (21:09)
[2018-12-31 00:46] VITALS: BP 107/66
[2018-12-31] MEDS: HEPARIN 5,000 UNITS/ML, 1ML SQ SCH ×3 (05:00→21:23)
[2018-12-31 05:32] LABS: BASOPHILS # (AUTO) 0.04 x10^3/uL (0-0.1); BASOPHILS % (AUTO) 0 % (0-1); EOSINOPHILS # (AUTO) 0.31 x10^3/uL (0-0.4); EOSINOPHILS % (AUTO) 3 % (1-7); LYMPHOCYTES # (AUTO) 1.28 x10^3/uL (1-3.4); LYMPHOCYTES % (AUTO) 12 % (22-44); MD NO; MEAN CORPUSCULAR HEMOGLOBIN 30.1 pg (27.5-34.5); MEAN CORPUSCULAR HGB CONC 32.4 g/dL (33.2-36.2); MEAN CORPUSCULAR VOLUME 93.1 fL (81-97); MEAN PLATELET VOLUME 8.4 fL (7.4-10.4); MONOCYTES % (AUTO) 10 % (2-9); NEUTROPHILS # (AUTO) 8.19 x10^3/uL (1.8-6.8); NEUTROPHILS % (AUTO) 75 % (42-75); PLATELET COUNT 296 x10^3/uL (130-400); RED BLOOD COUNT 4.46 x10^6/uL (4.38-5.82); RED CELL DISTRIBUTION WIDTH 15.1 % (9.4-14.8)
[2018-12-31 05:39] LABS: ANION GAP 6 mmol/L (5-15); CALCIUM 8.6 mg/dL (8.5-10.1); CHLORIDE 98 mmol/L (98-107); CREATININE 0.81 mg/dL (0.7-1.3)
[2018-12-31] MEDS: ALBUTEROL/IPRATROPIUM 2.5MG/0.5MG, 3 ML NPPB SCH ×4 (07:15→20:15)
[2018-12-31] MEDS: BUDESONIDE 0.5 MG/2 ML INHA INH SCH ×2 (07:15→20:15)
[2018-12-31 07:16] VITALS: BP 136/79
[2018-12-31] MEDS: INSULIN LISPRO 100 UNITS/ML, PEN SQ-INSULIN SCH ×4 (08:50→21:25)
[2018-12-31] MEDS: INSULIN GLARGINE 100 UNITS/ML, PEN SQ-INSULIN SCH ×2 (08:50→21:26)
[2018-12-31] MEDS: FUROSEMIDE 20 MG/2 ML IV SCH ×2 (08:51→17:07)
[2018-12-31] MEDS: AMIODARONE 200 MG TABLET PO SCH ×2 (08:51→21:25)
[2018-12-31] MEDS: DORZOLAMIDE OPHTH 2%, 10ML EACHEYE SCH ×3 (08:51→21:24)
[2018-12-31] MEDS: BRIMONIDINE TARTRATE OPHTH 0.15%, 5ML EACHEYE SCH ×2 (08:51→22:57)
[2018-12-31] MEDS: GABAPENTIN 400 MG CAPSULE PO SCH ×3 (08:51→21:24)
[2018-12-31] MEDS: LACTOBACILLUS CHEW TABLET PO SCH ×3 (08:51→21:24)
[2018-12-31] MEDS: POTASSIUM CHLORIDE 10% 20 MEQ/15 ML UDC PO SCH ×2 (08:52→21:24)
[2018-12-31 15:55] VITALS: BP 114/72
[2018-12-31 20:47] VITALS: BP 123/75
[2018-12-31] MEDS: TERAZOSIN 2MG CAPSULE PO SCH (21:25)
[2018-12-31] MEDS: ATORVASTATIN 40 MG TABLET PO SCH (21:25)
[2018-12-31] MEDS: RISPERIDONE 0.5 MG TABLET PO SCH (21:25)
[2019-01-01 00:07] VITALS: BP 105/45
[2019-01-01] MEDS: HEPARIN 5,000 UNITS/ML, 1ML SQ SCH (06:06)
[2019-01-01 06:57] VITALS: BP 98/61
[2019-01-01] MEDS: BUDESONIDE 0.5 MG/2 ML INHA INH SCH (07:14)
[2019-01-01] MEDS: ALBUTEROL/IPRATROPIUM 2.5MG/0.5MG, 3 ML NPPB SCH ×2 (07:14→10:48)
[2019-01-01] MEDS ORDERED: ACET650S21 NG (08:01)
[2019-01-01] MEDS ORDERED: TERA2CAP3 PO (08:01)
[2019-01-01] MEDS ORDERED: BUDE0.5A INH (08:01)
[2019-01-01] MEDS ORDERED: DORZ10DR26 EACHEYE (08:01)
[2019-01-01] MEDS ORDERED: POTA20LI2 PO (08:01)
[2019-01-01] MEDS ORDERED: AMIO200T42 PO (08:01)
[2019-01-01] MEDS ORDERED: BRIMONIDINE 0.15% EACHEYE (08:01)
[2019-01-01] MEDS ORDERED: FURO-92 PO (08:01)
[2019-01-01] MEDS ORDERED: INSU100I13 SQ-INSULIN (08:01)
[2019-01-01] MEDS ORDERED: INSU100I11 SQ-INSULIN (08:01)
[2019-01-01] MEDS ORDERED: RISP0.5T24 PO (08:01)
[2019-01-01] MEDS ORDERED: IPRA3AMP30 NPPB (08:01)
[2019-01-01] MEDS ORDERED: ATOR40TA78 PO (08:01)
[2019-01-01] MEDS ORDERED: GABA-827 PO (08:01)
[2019-01-01] MEDS: DORZOLAMIDE OPHTH 2%, 10ML EACHEYE SCH (08:15)
[2019-01-01] MEDS: BRIMONIDINE TARTRATE OPHTH 0.15%, 5ML EACHEYE SCH (08:16)
[2019-01-01] MEDS: LACTOBACILLUS CHEW TABLET PO SCH (08:16)
[2019-01-01] MEDS: GABAPENTIN 400 MG CAPSULE PO SCH (08:16)
[2019-01-01] MEDS: AMIODARONE 200 MG TABLET PO SCH (08:16)
[2019-01-01] MEDS: FUROSEMIDE 20 MG/2 ML IV SCH (08:16)
[2019-01-01] MEDS: POTASSIUM CHLORIDE 10% 20 MEQ/15 ML UDC PO SCH (08:17)
[2019-01-01] MEDS: INSULIN LISPRO 100 UNITS/ML, PEN SQ-INSULIN SCH ×2 (08:18→11:09)
[2019-01-01] MEDS: INSULIN GLARGINE 100 UNITS/ML, PEN SQ-INSULIN SCH (08:19)
[2019-01-01] MEDS ORDERED: FLU VACC QS2019-20 36MOS UP/PF 0.5 ML IM-VACC ONE (09:00)
== END 2019-01-01 11:51 | DRG 870 ==
LOC: ED 21:05 → EDIP 23:32 → CCU 12-20 00:45 → 4EST 12-26 13:52
PROVIDERS: ADMIT Family Medicine; ATTEND Internal Medicine
PROC: 5A1955Z Respiratory Ventilation, Greater than 96 Consecutive Hours (ICD-10-PCS; principal; 2018-12-19)
PROC: 0BH17EZ Insertion of Endotracheal Airway into Trachea, Via Natural or Artificial Opening (ICD-10-PCS; 2018-12-19)
DX: A40.3 Sepsis due to Streptococcus pneumoniae (principal); J96.21 Acute and chronic respiratory failure with hypoxia; G93.41 Metabolic encephalopathy; I50.33 Acute on chronic diastolic (congestive) heart failure; J13 Pneumonia due to Streptococcus pneumoniae; J96.22 Acute and chronic respiratory failure with hypercapnia; I31.3 Pericardial effusion (noninflammatory); E87.1 Hypo-osmolality and hyponatremia; E87.2 Acidosis; I47.2 Ventricular tachycardia; J98.11 Atelectasis; Z99.11 Dependence on respirator [ventilator] status; I27.20 Pulmonary hypertension, unspecified; D64.9 Anemia, unspecified; E11.40 Type 2 diabetes mellitus with diabetic neuropathy, unspecified; E11.51 Type 2 diabetes mellitus with diabetic peripheral angiopathy without gangrene; E11.65 Type 2 diabetes mellitus with hyperglycemia; E66.9 Obesity, unspecified; Z68.38 Body mass index [BMI] 38.0-38.9, adult; E78.00 Pure hypercholesterolemia, unspecified; E78.5 Hyperlipidemia, unspecified; F17.200 Nicotine dependence, unspecified, uncomplicated; F41.1 Generalized anxiety disorder; G47.33 Obstructive sleep apnea (adult) (pediatric); H54.8 Legal blindness, as defined in USA; I11.0 Hypertensive heart disease with heart failure; I48.91 Unspecified atrial fibrillation; I87.8 Other specified disorders of veins; J43.9 Emphysema, unspecified; K21.9 Gastro-esophageal reflux disease without esophagitis; K42.9 Umbilical hernia without obstruction or gangrene; K57.30 Diverticulosis of large intestine without perforation or abscess without bleeding; N40.0 Benign prostatic hyperplasia without lower urinary tract symptoms; Z85.118 Personal history of other malignant neoplasm of bronchus and lung; Z92.21 Personal history of antineoplastic chemotherapy; Z99.81 Dependence on supplemental oxygen; Z91.041 Radiographic dye allergy status; Z88.8 Allergy status to other drugs, medicaments and biological substances; Z71.6 Tobacco abuse counseling
CPT/HCPCS: 31500; 36415; 36600; 96374; 99291; J3490; J7620; J7626; 71045; 71250; 71275; 74177; 80048; 80053; 82803; 82962; 83036; 83605; 83735; 83880; 84100; 84436; 84478; 84481; 84484; 85025; 87040; 87070; 87081; 87181; 87184; 87205; 93005; 93306; 94002; 94003; 94150; 94640; G0378; J0456; J0696; J1644; J2250; J2704; J3010; J7060; Q9967; J0282; J0330; J1815; J1940; J7030; J7050

== ENCOUNTER 2019-10-11 21:00 | Emergency (ER) | payer OTHER ==
[~2019-10-11] VITALS: Ht 188 cm; Wt 143.1 kg
[~2019-10-11 21:00] MED LIST: ACET650S21 NG; AMIO200T42 PO; ATOR40TA78 PO; BRIMONIDINE 0.15% EACHEYE; BUDE0.5A INH; DORZ10DR26 EACHEYE; FURO-92 PO; GABA-827 PO; INSU100I11 SQ-INSULIN; INSU100I13 SQ-INSULIN; IPRA3AMP30 NPPB; POTA20LI2 PO; RISP0.5T24 PO; TERA2CAP3 PO
--- NOTE | 2019-10-11 21:00 | NUR ---
pt BIB [facility] from home where he was c/o SOB x1 hour. per [facility] pt was found to be in SVT on scene. unk idf pt has h of SVT pt was given 6mg then 12mg then 12mg of adenosine [employer] and briefly went into SR then went back into SVT per report pt is anious and screaming for his . pt has hx of COPD and is on 3L O2 via NC at home pt denies CP and is uncooperatiove with tx. pt is repeatedly removing his O2
[2019-10-11] MEDS ORDERED: DILTIAZEM 5 MG/ML, 5ML ONE ×2 (21:02→21:29)
[2019-10-11] MEDS ORDERED: DILTIAZEM 5 MG/ML, 5ML IVPush STA (21:05)
--- NOTE | 2019-10-11 21:20 | NUR ---
pt has been medicated and HR remains at 130 pt screaming and now refusing O2 and refusing further medications. Dr. Vora at bedside. pt at bedside
--- NOTE | 2019-10-11 21:24 | NUR ---
CXR at bedside
--- NOTE | 2019-10-11 21:25 | NUR ---
EKG at bedside has shown pt ti be in A-fib with RVR
--- NOTE | 2019-10-11 21:27 | NUR ---
per report from [facility], pt takes magnesium, D-12, gabapentin, and diclofenac, but unk dosages. pt is unsure of medications or dosages
[2019-10-11] MEDS ORDERED: DILTIAZEM 5 MG/ML, 5ML IV ONE (21:30)
[2019-10-11] MEDS ORDERED: SODIUM CHLORIDE FLUSH 10ML SYR IVF ONE (21:30)
[2019-10-11 21:32] LABS: ALBUMIN 3.2 g/dL (3.4-5.0); ANION GAP 9 mmol/L (5-15); CALCIUM 8.8 mg/dL (8.5-10.1); CHLORIDE 97 mmol/L (98-107); MEAN CORPUSCULAR HGB CONC 32.9 g/dL (33.2-36.2); MEAN CORPUSCULAR VOLUME 91.3 fL (81-97); MEAN PLATELET VOLUME 7.9 fL (7.4-10.4); PLATELET COUNT 328 x10^3/uL (130-400); RED BLOOD COUNT 4.65 x10^6/uL (4.38-5.82); RED CELL DISTRIBUTION WIDTH 15.3 % (9.4-14.8)
--- NOTE | 2019-10-11 21:36 | NUR ---
pt and report that pt had an ME 12/28. no stent placement
[2019-10-11 21:37] LABS: TROPONIN I 0.027 ng/mL (0.000-0.045)
--- NOTE | 2019-10-11 21:43 | NUR ---
pt being given small amounts of PO ice chips intermittently for comfort. Ok per Dr. Vora
--- NOTE | 2019-10-11 21:44 | NUR ---
pt calmer now, but still agitated. present at bedside
--- NOTE | 2019-10-11 21:45 | NUR ---
Dr. Saez at bedside for recheck. pt has PNA. pt at bedside states that pt has L sided lung cancer Addendum: 10/11/19 at [address] Vora at bedside for rechek. pt has PNA. pt reports that pt has R sided lung cancer
--- NOTE | 2019-10-11 21:49 | NUR ---
lab at bedside for additional draw and BC pt refusing admission pt refusing IV ABX pt at [facility] attempting to talk to pt about admission
[2019-10-11] MEDS ORDERED: CEFTRIAXONE PMX 1GM/50ML 50 ML IVPB ONE (22:00)
[2019-10-11] MEDS ORDERED: AZITHROMYCIN 500 MG in SODIUM CHLORIDE 0.9% 250 ML IVPB ONE (22:00)
--- NOTE | 2019-10-11 22:02 | NUR ---
pt continues to remove O2 and refuses treatment pt agitated pt reports that he walks with a cane at home. pt made aware that his cane was not brought here with him in the ambulance
[2019-10-11 22:10] LABS: BASOPHILS # (AUTO) 0.08 x10^3/uL (0-0.1); BASOPHILS % (AUTO) 0 % (0-1); EOSINOPHILS # (AUTO) 0.11 x10^3/uL (0-0.4); EOSINOPHILS % (AUTO) 0 % (1-7); LYMPHOCYTES # (AUTO) 0.86 x10^3/uL (1-3.4); LYMPHOCYTES % (AUTO) 3 % (22-44); MD SCAN; MONOCYTES # (AUTO) 1.33 x10^3/uL (0.2-0.8); MONOCYTES % (AUTO) 5 % (2-9); NEUTROPHILS # (AUTO) 23.41 x10^3/uL (1.8-6.8); NEUTROPHILS % (AUTO) 91 % (42-75)
--- NOTE | 2019-10-11 22:15 | NUR ---
Dr. Saez has been to bedside again. pt continues to refuse medications
--- NOTE | 2019-10-11 22:17 | NUR ---
pt assisted with urinal
[2019-10-11 22:32] VITALS: BP 126/63
--- NOTE | 2019-10-11 22:54 | NUR ---
pt is A&O x4. pt is adamant that he wants to sign out AMA. pt has been told numerous times the risks of leaving the hospital and pt continues to state that he wants to leave. pt has been insising that he wants all monitoing equipment removed. monitoring equipment has been removed per pt request. pt at bedside has made muliple phone calls to [facility] family members to try to convince pt to stay. pt states that he wants to leave. pt is on home O2 and walks with a cane. made pt aware that he will need these items to leave for his own safety. pt has contacted his daughter to bring him his O2 and his cane.
--- NOTE | 2019-10-11 23:15 | NUR ---
pt sitting on gurney taking PO ice chips. pt waiting for daughter to bring his cane and O2. pt at bedside
--- NOTE | 2019-10-11 23:40 | NUR ---
pt daughter at bedside with pt's cane and portable O2. pt family has turned on pt O2. pt portable home O2 on pt and pt given AMA paperwork AMA document read aloud to pt and to pt and to pt daughter with Lamp Assembler Krysi present as witness. pt made aware that he can still stay for treatment if he wishes. pt verbalized understanding. pt states that he wants to go home. pt is A&O x4. pt is able to stand with his cane. pt assisted to WC per his request and per family request. AMA documentation signed by pt, by pt , by this RN and by distributing clerk Krysi. pt made aware that he may return for treatment at any time. pt and verbalized understanding
== END 2019-10-12 00:21 | disposition left against medical advice (07) ==
LOC: ED 21:06
DX: A41.9 Sepsis, unspecified organism (principal); J15.9 Unspecified bacterial pneumonia; J96.91 Respiratory failure, unspecified with hypoxia; I48.91 Unspecified atrial fibrillation; R00.0 Tachycardia, unspecified; J43.9 Emphysema, unspecified; E11.9 Type 2 diabetes mellitus without complications; I50.9 Heart failure, unspecified; Z87.891 Personal history of nicotine dependence
CPT/HCPCS: 36415; 71045; 80048; 82040; 83605; 84145; 84484; 85025; 87040; 93005; 96374; 99285